=== PATIENT | male | born 1970 | race Caucasian/White ===

== ENCOUNTER 2018-10-07 19:56 | Emergency (ER) | payer MEDICAID ==
[~2018-10-07] VITALS: Ht 177.8 cm; Wt 84.0 kg
[2018-10-07 19:57] VITALS: BP 152/86
[2018-10-07] MEDS ORDERED: KETOROLAC 30 MG/1 ML ONE (20:23)
[2018-10-07] MEDS ORDERED: KETOROLAC 30 MG/1 ML IM ONE (20:30)
[2018-10-07] MEDS ORDERED: HYDROcodone/APAP 5/325 TABLET PO ONE (21:30)
[2018-10-07] MEDS ORDERED: HYDROcodone/APAP 5/325 TABLET ONE (21:37)
== END 2018-10-07 21:51 | disposition home or self-care (01) ==
LOC: ED 21:14
DX: M25.551 Pain in right hip (principal)
CPT/HCPCS: 73502; 96372; 99283; J1885